=== PATIENT | female | born 1940 | race Caucasian/White ===

== ENCOUNTER 2019-03-09 19:27 | Emergency (ER) | payer OTHER ==
[~2019-03-09] VITALS: Ht 175.3 cm; Wt 70.3 kg
--- NOTE | ~2019-03-09 | EMS ---
[address] [address] EMS Patient Care Report Name: VIMAL CEDILLO Room #: DEP NICOLE Lozoya#: [id number] Admission: 03/09/19 ������������������ Attend Phys: Discharge: 03/09/19 ������������������ Date of : 44 Report #: [id number] THIS REPORT FOR: //name// Report Transmitted: 03/13/2019 09:19 EMS Care Summary [facility] Incident [id number] @ 03/09/2019 19:01 Incident Location [address] [place] [address] Patient VIMAL CEDILLO Female, 78 Years 1940 Patient Address [address] [place] [address] Patient History Dementia,Diabetes, Patient Allergies No known allergies, Patient Medications Metformin, Cyanocobalamin Co57, Trazodone, Lorazepam, Metoprolol, Chief Complaint contusion and sking tear Disposition Transported No Lights/[place] Reason Falls Transported To [facility] Narrative Upon arrival pt was sitting on a chair, presented w/o distress. Pt lives in [facility]. RN reported pt tripped and fell forwards to the floor [address] [address] EMS Patient Care Report Name: VIMAL CEDILLO Room #: DEP ER Darell#: [id number] Admission: 03/09/19 ������������������ Attend Phys: Discharge: 03/09/19 ������������������ Date of : 44 Report #: [id number] from standing position and hit her head. Pt did not loss consciousness. Pt denied any neck or back pain. Pt was not on blood thinners. Pt had golf size of contusion to the R forehead. RN reported pt family did not flower picker the phone but pt go to [facility] if there is any emergency. RN reported pt hx of dementia and she is acting her normal behavior. Initial Vitals @19:13P: 64,R: 18,BP: 139/75,Pain: 0/10,SpO2: 95, @19:08P: 74,R: 18,BP: 136/75,Pain: 0/10,SpO2: 97, Assessments @19:10MENTAL:Other,Person Oriented,Event Oriented,SKIN:No Abnormalities,HEENT:Head/Face: Swelling,Head/Face: ECC,Neck/Airway: No Abnormalities,LUNG SOUNDS:General: No Abnormalities,Left Upper: No Abnormalities,Right Upper: No Abnormalities,Left Lower: No Abnormalities,Right Lower: No Abnormalities,ABDOMEN:General: No Abnormalities,Left Upper: No Abnormalities,Right Upper: No Abnormalities,Left Lower: No Abnormalities,Right Lower: No Abnormalities,PELVIS//GI:No Abnormalities,EXTREMITIES:Left Arm: No Abnormalities,Right Arm: No Abnormalities,Left Leg: No Abnormalities,Right Leg: No Abnormalities,PULSE:NEURO:No Abnormalities, Impression Injury Timeline 19:,Call Received 19:01,Psap Call 19:01,Dispatched 19:02,En Route 19:06,On Scene 19:08,At Patient 19:08,BP: 136/75 M,PULSE: 74,RR: 18 R,SPO2: 97 Ox,ETCO2: ,BG: ,PAIN: 0,GCS: , 19:13,Depart Scene 19:13,BP: 139/75 M,PULSE: 64,RR: 18 R,SPO2: 95 Ox,ETCO2: ,BG: ,PAIN: 0,GCS: , 19:21,At Destination 19:43,Call Closed Disclaimer v1.1 Copyright 2019 [employer] This EMS Care Summary contains data elements from the applicable legal record (which may be displayed differently). It is designed to provide pertinent information for the following purposes: continuity of care, clinical quality, and state data reporting. The complete legal record is available to ED staff and administrators of the receiving hospital in [employer] Patient [employer]. All data [address] [address] EMS Patient Care Report Name: VIMAL CEDILLO Room #: ANGELICA Lozoya#: [id number] Admission: 03/09/19 ������������������ Attend Phys: Discharge: 03/09/19 ������������������ Date of : 44 Report #: [id number] is provided "as is."
[2019-03-09] MEDS ORDERED: TOPROL XL100 MG PO (21:20)
[2019-03-09] MEDS ORDERED: RISPERIDONE0.5 MG PO (21:20)
[2019-03-09] MEDS ORDERED: METFORMIN HCL500 MG PO (21:21)
[2019-03-09] MEDS ORDERED: LOSARTAN POTASS50 MG PO (21:26)
[2019-03-09] MEDS ORDERED: TRAZODONE HCL50 MG PO (21:26)
[2019-03-09] MEDS ORDERED: ATIVAN0.5 MG PO (21:27)
[2019-03-09] MEDS ORDERED: DONEPEZIL HCL5 M1 PO (21:28)
[2019-03-09 22:01] VITALS: BP 166/80
== END 2019-03-09 22:01 ==
LOC: ER 19:27
DX: S51.811A Laceration without foreign body of right forearm, initial encounter (principal); S09.8XXA Other specified injuries of head, initial encounter; F03.90 Unspecified dementia, unspecified severity, without behavioral disturbance, psychotic disturbance, mood disturbance, and anxiety; Z88.7 Allergy status to serum and vaccine; W01.198A Fall on same level from slipping, tripping and stumbling with subsequent striking against other object, initial encounter; Y92.89 Other specified places as the place of occurrence of the external cause; Y93.89 Activity, other specified; Y99.8 Other external cause status